=== PATIENT | male | born 1965 | race Caucasian/White ===

== ENCOUNTER 2022-10-13 18:14 | Outpatient (CLI) | payer BC, SELFPAY ==
[2022-10-13 19:05] LABS: SARS-CoV-2 RNA PCR Negative (Negative)
== END 2022-10-13 18:15 | disposition home or self-care (01) ==
LOC: CHSLAB 18:15
PROVIDERS: PCP Family Medicine; Visit Provider Internal Medicine
DX: J06.9 Acute upper respiratory infection, unspecified (principal); Z20.822 Contact with and (suspected) exposure to COVID-19
CPT/HCPCS: U0003; U0005

== ENCOUNTER 2023-04-22 10:26 | Outpatient (CLI) | payer BC, SELFPAY ==
--- NOTE | ~2023-04-22 | XR_ITS ---
EXAM: XR shoulder RT min 2V DATE: 04/22/2023 12:00 HISTORY: chronic anterior shoulder pain, nki . COMPARISON: None available. FINDINGS: Normal mineralization. No fracture or dislocation. No lytic or blastic lesion. Moderate AC joint and mild glenohumeral joint degenerative change. No erosion or periosteal change. Soft tissues within normal limits. IMPRESSION: Polyarticular osteoarthritis of the right shoulder. Reviewed, dictated and finalized at location K.
--- NOTE | ~2023-04-22 | XR_ITS ---
EXAM: XR hip RT min 2V DATE: 04/22/2023 12:00 HISTORY: chronic medial hip/groin pain nki . COMPARISON: None available. FINDINGS: Normal mineralization. No fracture or dislocation. No lytic or blastic lesion. Mild degene rative change in the right hip joint. Minimal scattered pelvic enthesopathy. No erosion or periosteal change. Soft tissues within normal limits. IMPRESSION: Mild right hip osteoarthritis. Reviewed, dictated and finalized at location K.
== END 2023-04-22 10:27 | disposition home or self-care (01) ==
LOC: CHSIMG 10:28
PROVIDERS: PCP Family Medicine; Visit Provider Registered Nurse
DX: M25.551 Pain in right hip (principal); M25.511 Pain in right shoulder; M16.11 Unilateral primary osteoarthritis, right hip; M19.012 Primary osteoarthritis, left shoulder
CPT/HCPCS: 73030; 73502

== ENCOUNTER 2024-12-05 00:14 | Day surgery (SDC) | payer BC, SELFPAY ==
[2024-11-29 09:36] VITALS: BMI 34.2
--- OUTSIDE RECORDS SUMMARY | 2024-12-05 00:17 | XMS_ITS | Referral Summary ---
Author Organization [facility] Address [address] [place] [address] Care Team Providers Care Custodian Name Role Phone Guera Ellsworth MD Primary Care Provider [phone] Source Comments [facility],non-owned Affiliates and Associated Physician Practices is amultiple site organization consisting of ambulatory clinics and hospital sitesin [place], [place], [place] and [place]. This disclosure is being madepursuant to the Care Everywhere program and may not contain all information available regarding this patient. Last updated 18.[facility] Social History Tobacco Use Types Packs/Day Years Used Date Smoking Tobacco: Never Assessed Sex and Gender Information Value Date Recorded Sex Assigned at Not on file Gender Identity Not on file Sexual Orientation Not on file Plan of Treatment Not on file Care Teams Custodian Relationship Specialty Start Date End Date Guera Ellsworth MD PCP - General 04/21/09
--- OUTSIDE RECORDS SUMMARY | 2024-12-05 00:17 | XMS_ITS | CONTINUITY OF CARE DOCUMENT ---
Author Name farzana yanes Address Unknown Organization [facility] Address [address] [place] [address] Phone [phone] Care Team Providers Care Sprinkler Truck Driver Name Role Phone farzana yanes Unavailable Unavailable
--- OUTSIDE RECORDS SUMMARY | 2024-12-05 00:17 | XMS_ITS | Patient Health Summary ---
Author Organization [facility] Address [address] [place] [address] Care Team Providers Care Coppersmith Helper Name Role Phone Guera Ellsworth MD Primary Care Provider [phone] [facility],non-owned Affiliates and Associated Physician Practices is amultiple site organization consisting of ambulatory clinics and hospital sitesin [place], [place], [place]. This disclosure is being madepursuant to the Care Everywhere program and may not contain all information available regarding this patient. Last updated 18.[facility] Social History Tobacco Use Types Packs/Day Years Used Date Smoking Tobacco: Never Assessed Sex and Gender Information Value Date Recorded Sex Assigned at Not on file Gender Identity Not on file Sexual Orientation Not on file Care Teams Coppersmith Helper Relationship Specialty Start Date End Date Guera Ellsworth MD PCP - General 04/21/09
--- OUTSIDE RECORDS SUMMARY | 2024-12-05 00:17 | XMS_ITS | Clinical Summary ---
Author Organization [facility] Address [address] [place] [address] Care Team Providers Care Mechanical Project Engineer Name Role Phone Ovidio Taylor MD Primary Care Provider Social History Tobacco Use Types Packs/Day Years Used Date Smoking Tobacco: Never Assessed Sex and Gender Information Value Date Recorded Sex Assigned at Not on file Legal Sex Male 6:08 PM CDT Gender Identity Not on file Sexual Orientation Not on file Last Filed Vital Signs Vital Sign Reading Time Taken Comments Blood Pressure 142/110 04/30/2018 3:20 PM CDT Pulse 69 04/30/2018 3:20 PM CDT Temperature - - Respiratory Rate - - Oxygen Saturation - - Inhaled Oxygen Concentration - - Weight 107 kg (236 lb) 04/30/2018 3:20 PM CDT Height 180.3 cm (5' 11 ) 04/30/2018 3:20 PM CDT Body Mass Index 32.92 04/30/2018 3:20 PM CDT Plan of Treatment Health Maintenance Due Date Last Done Comments Colorectal Cancer Screening Colonoscopy (10 Years) 1967 Annual Physical 1970 Hepatitis C 1985 DTaP, Tdap and Td Vaccines ( 1 - Tdap) 1986 Hepatitis B Vaccines (1 of 3 - 19+ 3-dose series) 1986 Zoster Vaccines (1 of 2) 2017 COVID-19 Vaccine (2023-2 5 season) 2024 Influenza Adult (#1) 2024 Meningococcal B Vaccine Aged Out No l onger eligible based on patient's age to complete this topic Meningococcal Vaccine Aged Out No edson jamey eligible based on patient's age to complete this topic Pneumococcal Vaccine: Pediat rics (0 to 5 Years) and At-Risk Patients (6 to 64 Years) Aged Out No longer eligible b ased on patient's age to complete this topic RSV Immunizations Under 20 Months Aged Out No longer eligible based on patient's age to complete this topic Insurance [facility] Care Teams Mechanical Project Engineer Relationship Specialty Start Date End Date Ovidio Taylor MD [address] [place] [id number] PCP - General FAMILY PRACTICE 06/16/20
--- OUTSIDE RECORDS SUMMARY | 2024-12-05 00:17 | XMS_ITS | Clinical Summary ---
Author Organization [facility] Address [address] [place] [address] Care Team Providers Care Hoist Worker Name Role Phone Guera Ellsworth MD Primary Care Provider [phone] Source Comments [facility],non-owned Affiliates and Associated Physician Practices is amultiple site organization consisting of ambulatory clinics and hospital sitesin [place], [place], [place] and [place]. This disclosure is being madepursuant to the Care Everywhere program and may not contain all information available regarding this patient. Last updated 18.[facility] Social History Tobacco Use Types Packs/Day Years Used Date Smoking Tobacco: Never Assessed Sex and Gender Information Value Date Recorded Sex Assigned at Not on file Gender Identity Not on file Sexual Orientation Not on file Plan of Treatment Health Maintenance Due Date Last Done Comments COLOGUARD (AGES 45-75) - COL ON CA SCREENING 1967 COLON MONITORING 1967 COLONOSCOPY - COLON CA SCREENING 1967 CT COLONOGRAPHY - COLON CA SCREENING 1967 Colorectal Cancer Screening 1967 FIT - COLON CA SCREENING 1967 FLEX SIG - COLON CA SCREENING 1967 LIPID TESTING 1967 HIV SCREENING 1982 HEPATITIS C SCREENING 08/02/1985 DTAP/TDAP/TD VACCINES (1 - Tdap) 1986 HEPATITIS B VACCINE (1 of 3 - 19+ 3-dose series) 1986 PNEUMOCOCCAL VACCINE 50+ (1 of 1 - PCV) 2017 ZOSTER VACCINE (1 of 2) 2017 COVID-19 VACCINE (2023-2 5 season) 2024 INFLUENZA VACCINE (#1) 2024 DEPRESSION SCREENING 09/25/2024 HIB VACCINE Aged Out No longer eligi ble based on patient's age to complete this topic HPV VACCINE Aged Out No longer eligi ble based on patient's age to complete this topic MENINGOCOCCAL (Group B) VACC INE SHARED DECISION-MAKING Aged Out No longer eligibl e based on patient's age to complete this topic MENINGOCOCCAL GROUPS A/C/Y/W VACCINE Aged Out No longer eligible b ased on patient's age to complete this topic PNEUMOCOCCAL VACCINE Aged Out No long er eligible based on patient's age to complete this topic Care Teams Hoist Worker Relationship Specialty Start Date End Date Guera Ellsworth MD PCP - General 04/21/09
--- OUTSIDE RECORDS SUMMARY | 2024-12-05 00:18 | XMS_ITS | Clinical Summary ---
Author Organization [facility] Address [address] [place] [address] Phone Care Team Providers Care Orchestrator Name Role Phone Ovidio Taylor MD Primary Care Provider [phone] Allergies Active Allergy Reactions Criticality Noted Date Comments Hydrocodone-Acetaminophen Hallucinations 2019 Medications valsartan-hydro CHLOROthiazide (DIOVAN-HCT) 320-25 MG Tablet Take 1 Tab by mouth every morning. Active metoprolol Succinate (TOPROL-XL) 50 MG TABLET SR 24 HR Take 50 mg by mouth every morning. Active Misc Natural Products (PROSTATE HEALTH PO) Take by mouth every morning. IP-6 Active calcium carbonate (Tums) 500 MG Chewable Tablet Take 1 Tab by mouth daily. Active omeprazole (PriLOSEC) 40 MG CAPSULE DELAYED RELEASE Take 1 Capsule by mouth daily. 90 Capsule 3 01/19/2021 Active Family History Medical History Relation Name Comments Cancer Mother breast cancer Hypertension Mother Relation Name Status Comments Mother Alive Social History Tobacco Use Types Packs/Day Years Used Date Smoking Tobacco: Never Smokeless Tobacco: Never Alcohol Use Standard Drinks/Week Comments Not Currently 0 (1 standard drink = 0.6 oz pur e alcohol) Sex and Gender Information Value Date Recorded Sex Assigned at Not on file Legal Sex Male 8:00 PM CDT Gender Identity Not on file Sexual Orientation Not on file Last Filed Vital Signs Vital Sign Reading Time Taken Comments Blood Pressure 111/82 07/10/2020 10:09 AM CDT Pulse 83 07/10/2020 8:36 AM CDT Temperature 36 C (96.8 F) 07/10/2020 10:09 AM CDT Respiratory Rate 14 07/10/2020 10:09 AM CDT Oxygen Saturation 97% 07/10/2020 10:09 AM CDT Inhaled Oxygen Concentration - - Weight 106.6 kg (235 lb) 05/28/2020 3:00 PM CDT Height 180.3 cm (5' 11 ) 05/28/2020 3:00 PM CDT Body Mass Index 32.78 05/28/2020 3:00 PM CDT Plan of Treatment Health Maintenance Due Date Last Done Comments Hepatitis C Virus (HCV) Screening 1967 TdaP Immunization 1967 Hepatitis B Immunization (1 of 3 - 19+ 3-dose series) 1986 Cologuard 2017 Immunochemical Fecal Occult Blood 2017 Pneumococcal Immunization (5 0+ years) (1 of 1 - PCV) 2017 Zoster Immunization (1 of 2) 2017 PSA Discussion 2022 Influenza Immunization (#1) 2024 SARS-COV-2 Immunization (1 - season) 2024 Colonoscopy 07/10/2025 07/10/2020 Colorectal Cancer Screening 07/10/2025 Respiratory Syncytial Virus (RSV) Immunization (Adult) (1 - 1-dose 75+ series) 2042 07/10/2020 Meningococcal Immunization (ACWY) Aged Out No longer eligible based on patient's age to complete this topic Pneumococcal Immunization Combined Aged Out No longer eligible based on patient's age to complete this topic Rotavirus Immunization Aged Out No lo nger eligible based on patient's age to complete this topic Insurance [facility] Care Teams Orchestrator Relationship Specialty Start Date End Date Ovidio Taylor MD [address] [place] [address] PCP - General Family Medicine 05/12/20
[2024-12-05 07:57] VITALS: BP 140/101; PULSE 73; RESP 18; TEMP 36.4; O2SAT 95
[2024-12-05] MEDS: LACTATED RINGERS 1,000 ML 150 ML IV CONT (08:06)
--- NOTE | 2024-12-05 08:25 | P.PNAN_ITS ---
Anes - Initial Pre Proc Eval Procedure: Operation Date: 12/05/24 09:00 Proposed Procedures p Esophagogastroduodenoscopy & Colonoscopy - Phil Dailey DO Date/Time: 12/05/24 08:25 Surgeon: Phil Dailey DO Pre Op Diagnosis: Dysphagia & hx prior colon polyps Patient Data Age: 59 Gender: M Height: 1.8 m Weight: 110.3 kg Last Vital Signs Temp 36.4 C L 12/05/24 07:57 Pulse 73 12/05/24 07:57 Resp 18 12/05/24 07:57 BP 140/101 H 12/05/24 07:57 Pulse Ox 95 12/05/24 07:57 O2 Del Method Room Air 12/05/24 07:57 Allergies Allergy/AdvReac Type Severity Reaction Status Date / Time hydrocodone Allergy Mild HALLUCINATE Verified 12/05/24 07:54 S Home Medications ?Medication ?Instructions ?Recorded ?Confirmed ?Type carvedilol 6.25 mg tablet 6.25 mg PO Q12H 11/29/24 12/05/24 History omeprazole 40 mg capsule,delayed 40 mg PO DAILY 11/29/24 12/05/24 History release sertraline 25 mg tablet 25 mg PO DAILY 11/29/24 12/05/24 History valsartan 320 1 tablet PO DAILY 11/29/24 12/05/24 History mg-hydrochlorothiazide 25 mg tablet Patient hx anesthesia problems: none Family hx anesthesia problems: none Results Review: All pre-operative results and documents have been reviewed as part of the pre- operative evaluation. [facility] Past Medical History Medical History (Updated 12/05/24 @ 08:25 by Marcos Evangelista MD) HTN (hypertension) Family History Family History Other Family history of malignant neoplasm of breast in first degree relative Hypertension Social History Social History Smoking status: Never smoker Alcohol intake: never Spiritual care concerns: No Anes - Eval Final PreProcedure Day of Procedure 12/05/24 08:25 Patient weight: obese Heart: regular rate and rhythm Lungs: clear to auscultation Airway: Mallampati scale class II Neurological: alert and oriented Last oral intake: >/= 8 hours ASA classification: II Emergent: no Anesthetic plan: proceed Anesthesia type and monitoring: general GIVS and standard monitoring Results Review: All pre-operative results and documents have been reviewed as part of the pre- operative evaluation. Informed Consent: The patient's anesthetic plan and its attendant risks and benefits were discussed with the patient/family/POA. Questions were solicited and answers provided to the satisfaction of the patient/family/POA.
--- NOTE | 2024-12-05 09:01 | PM.IMHP ---
H&P: HPI History of Present Illness Date/Time: 12/05/24 09:01 Chief Complaint: dysphagia, GERD, history of colon polyps Narrative: this is a 59-year-old man who presents for EGD and colonoscopy. He has had a recent history of dysphagia with solid foods. This has improved somewhat but he does deal with chronic GERD and takes a PPI. He also had a colonoscopy about 5-7 years ago which showed evidence of multiple polyps. He denies family history of colon cancer and denies any hematochezia or melena. Review of Systems Review of Systems: All systems reviewed & are unremarkable except as noted in HPI and below Constitutional: Constitutional: Denies chills, Denies fever(s), Denies headache(s) and Denies weight loss Eyes: Eyes: Denies change in vision ENT: Denies dizziness, Denies headache(s), Denies neck mass and Denies throat swelling Cardiovascular: Cardiovascular: Denies chest pain, Denies lightheadedness and Denies dyspnea Respiratory: Respiratory: Denies cough, Denies dyspnea and Denies wheezing Gastrointestinal: Gastrointestinal: Denies abdominal pain, Denies change in bowel habits, Denies nausea and Denies vomiting Genitourinary: Genitourinary: Denies hematuria and Denies dysuria Musculoskeletal: Musculoskeletal: Reports as per HPI Integumentary/Breasts: Skin/Breast: Reports as per HPI Neurologic: Denies dizziness and Denies headache(s) Allergic/Immunologic: Allergic/Immunologic: Denies throat swelling and Denies wheezing [facility], [facility] Past Medical History Medical History (Updated 12/05/24 @ 09:02 by Phil Dailey DO) HTN (hypertension) Family History Family History Other Family history of malignant neoplasm of breast in first degree relative Hypertension Social History Social History Smoking status: Never smoker Alcohol intake: never Spiritual care concerns: No Meds Home Medications and Allergies Home Medications ?Medication ?Instructions ?Recorded ?Confirmed ?Type carvedilol 6.25 mg tablet 6.25 mg PO Q12H 11/29/24 12/05/24 History omeprazole 40 mg capsule,delayed 40 mg PO DAILY 11/29/24 12/05/24 History release sertraline 25 mg tablet 25 mg PO DAILY 11/29/24 12/05/24 History valsartan 320 1 tablet PO DAILY 11/29/24 12/05/24 History mg-hydrochlorothiazide 25 mg tablet Allergies Allergy/AdvReac Type Severity Reaction Status Date / Time hydrocodone Allergy Mild HALLUCINATE Verified 12/05/24 07:54 S Vital Signs Vital Signs - 24 hr 12/05/24 07:57 Temperature 97.5 F L Pulse Rate 73 Respiratory Rate 18 Blood Pressure 140/101 H Pulse Oximetry 95 Oxygen Delivery Room Air Exam Const: General: no acute distress and alert Orientation/consciousness: patient oriented x3 HENMT: Head: normocephalic and atraumatic Ears: hearing grossly normal bilaterally Face/Nose/Sinus: Normal nares present Mouth: Yes Normal oral and palatal mucosa present Eyes: Periorbital: periorbital findings normal Sclera: sclerae normal EOM: EOMs intact bilaterally Neck: Neck: normal visual inspection, no lymphadenopathy and trachea midline Chest: Chest palpation & inspection: normal inspection of the chest Resp: Effort & Inspection: normal respiratory effort Auscultation: clear to auscultation bilaterally Cardio: Jugular venous distension: no JVD Rate: regular rate Rhythm: regular rhythm Heart sounds: S1 normal heart sound present and S2 normal heart sound present Peripheral pulses: Peripheral pulses 2+ throughout GI: Inspection: normal to inspection GI Palp: Yes Soft to palpation, No Tenderness to palpation present (GI), No Guarding due to palpation present (GI) and No Rebound tenderness present Percussion: Yes normal to percussion Auscultation: normal bowel sounds : General: Yes no CVA tenderness Back/Spine/Pelvis: Back: no CVA tenderness Neuro: General: patient oriented x3, no focal motor deficits and CN's II-XI intact bilaterally Cognition (Neuro): normal cognition Speech: normal speech Motor exam (neuro): 5/5 motor strength present throughout Extrem: General: capillary refill normal and no clubbing, cyanosis or edema Assessment and Plan Assessment and plan (1) Dysphagia: Code(s): R13.10 - Dysphagia, unspecified Status: Acute Assessment and Plan: I have recommended EGD and colonoscopy. I have discussed the procedure, risks, benefits, and alternatives. Questions were answered. Patient is agreeable to proceed. (2) Hx of colonic polyps: Code(s): Z86.0100 - Personal history of colon polyps, unspecified Status: Acute
[2024-12-05] MEDS: BENZOCAINE (*SP) 60 ML SPRAY CAN (HURRICAINE) 1 SPRAY MUCOUS MEM (09:07)
--- NOTE | 2024-12-05 09:41 | SUR.OPER ---
EGD START 914, END 919 COLONOSCOPY START 929, END 939
[2024-12-05 09:45] VITALS: BP 110/84; PULSE 75; RESP 16; O2SAT 96
[2024-12-05 09:55] VITALS: BP 119/76; PULSE 64; RESP 16; O2SAT 96
[2024-12-05 10:05] VITALS: BP 134/93; PULSE 61; RESP 16; O2SAT 99
== END 2024-12-05 10:20 | disposition home or self-care (01) ==
PROVIDERS: PCP Family Medicine; Visit Provider Surgery
PROC: 0DJ08ZZ Inspection of Upper Intestinal Tract, Via Natural or Artificial Opening Endoscopic (ICD-10-PCS; CPT 45378; principal; 2024-12-05 09:00)
DX: Z12.11 Encounter for screening for malignant neoplasm of colon (principal); D12.5 Benign neoplasm of sigmoid colon; K64.8 Other hemorrhoids; K44.9 Diaphragmatic hernia without obstruction or gangrene; K21.9 Gastro-esophageal reflux disease without esophagitis; I10 Essential (primary) hypertension; E66.9 Obesity, unspecified; Z68.33 Body mass index [BMI] 33.0-33.9, adult; Z80.3 Family history of malignant neoplasm of breast
CPT/HCPCS: 43235; 45385; 88305; J2003; J2704; J7120